=== PATIENT | female | born 2000 | race Caucasian/White ===

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

== ENCOUNTER 2021-01-05 21:23 | Emergency (ER) | payer SELFPAY ==
[~2021-01-05] VITALS: Ht 152.4 cm; Wt 45.0 kg
[2021-01-06 00:03] LABS: HEMOGLOBIN 13.6 g/dl (12.0-16.0); IMMATURE GRANULOCYTES 0.2 % (0.0-5.0); MEAN CELL VOLUME 92.3 fL CALC (80.0-100.0); MEAN CORPUSCULAR HGB 30.6 pG CALC (26.0-32.0); MEAN CORPUSCULAR HGB CONC 33.2 g/dL CAL (32.0-36.0); NEUT# 5.1 thou/uL (2.00-7.15); RED BLOOD COUNT 4.44 mill/uL (4.20-5.60)
[2021-01-06 00:23] LABS: URINE BILIRUBIN - DIPSTICK NEGATIVE (NEGATIVE); URINE BLOOD DIPSTICK LARGE (NEGATIVE); URINE COLOR YELLOW; URINE KETONE TRACE mg/dL (NEGATIVE); URINE LEUK ESTERASE SMALL (NEGATIVE); URINE NITRITE - DIPSTICK NEGATIVE (Negative); URINE PROTEIN - DIPSTICK NEGATIVE (NEG-TRACE); URINE SPECIFIC GRAVITY 1.025; URINE UROBILINOGEN - DIPSTICK 0.2 E.U./dL (0.2)
[2021-01-06 00:25] LABS: URINE GLUCOSE - DIPSTICK NEGATIVE (NEGATIVE); URINE RBC >100 RBC/hpf (0-5)
[2021-01-06 00:26] LABS: URINE BACTERIA MODERATE hpf; URINE EPITHELIAL CELLS MANY EPI/hpf (0-FEW)
[2021-01-06] MEDS ORDERED: KEFLEX500 MG PO (00:29)
[2021-01-06 01:10] VITALS: BP 121/69
== END 2021-01-06 01:10 | disposition home or self-care (01) | DRG 690 ==
LOC: ED 21:23
DX: N39.0 Urinary tract infection, site not specified (principal); B96.20 Unspecified Escherichia coli [E. coli] as the cause of diseases classified elsewhere; N93.9 Abnormal uterine and vaginal bleeding, unspecified